=== PATIENT | female | born 1955 | race Caucasian/White ===

== ENCOUNTER → 2017-02-25 18:56 | Emergency (ER) | payer BC ==
[~2017-02-25 18:56] MED LIST: traMADol TAB* 50 MG PO ONE
--- NOTE | 2017-02-25 20:41 | RAD ---
INDICATION: Knee pain after a fall COMPARISON: None TECHNIQUE: 4 view radiograph of the left knee. FINDINGS: On the AP view, along the medial margin of the left tibial plateau is a faint lucent line that extends to an area of slight cortical disruption. This is not seen on other projections the bones are otherwise well corticated and properly aligned. There is no large joint effusion. IMPRESSION: Questionable lucency along the medial tibial plateau could represent a nondisplaced tibial plateau fracture in the correct clinical setting. If the patient's symptoms persist, follow-up imaging is recommended.
--- NOTE | 2017-02-25 23:32 | ED ---
Laceration/Wound HPI - HPI Summary HPI Summary: 61F presents with laceration to left knee. She has Parkinson and was walking into her house and fell onto her knee. She has an laceration over the lateral aspect of her patella. She has been able to ambulate with minimal pain. immunizations are up to date. got a nail in foot couple months ago and got a septic infection from it so is concerned about another infection. Denies any numbness or tingling. pain in mostly above the patella. no pain below the patella. - History of Current Complaint Stated Complaint: LT KNEE LAC Time Seen by Provider: 02/25/17 22:31 Pain Intensity: 2 - Additional Pertinent History Primary Care Physician: ROCIO - Allergy/Home Medications Allergies/Adverse Reactions: Allergies Allergy/AdvReac Type Severity Reaction Status Date / Time Erythromycin Allergy Hives Verified 02/25/17 19:40 Penicillins Allergy Hives Verified 02/25/17 19:40 Tetracycline Allergy Hives Verified 02/25/17 19:40 Pork Allergy AdvReac Headache Verified 02/25/17 19:40 PMH/Surg Hx/FS Hx/Imm Hx Endocrine/Hematology History: Reports: Hx Diabetes, Hx Thyroid Disease Cardiovascular History: Reports: Hx Hypertension Denies: Hx Pacemaker/ICD Respiratory History: Denies: Hx Asthma, Hx Chronic Obstructive Pulmonary Disease (COPD) GI History: Reports: Hx Gastrointestinal Bleed Denies: Hx Ulcer History: Reports: Other Problems/Disorders - kidney issues as child Sensory History: Reports: Hx Contacts or Glasses Denies: Hx Hearing Aid Opthamlomology History: Reports: Hx Contacts or Glasses Neurological History: Reports: Other Neuro Impairments/Disorders - parkinson;s Psychiatric History: Reports: Hx Panic Disorder - Surgical History Surgery Procedure, Year, and Place: thyroidectomy, hysterectomy;ENDOMETRIOSIS/ INFERTILITY Infectious Disease History: No Infectious Disease History: Denies: Hx Hepatitis, Hx Human Immunodeficiency Virus (HIV), Traveled Outside the [place] in Last 30 Days - Social History Alcohol Use: Rare Substance Use Type: Reports: None Smoking Status (MU): Former Smoker Review of Systems Negative: Fever Negative: Chest Pain Negative: Shortness Of Breath Positive: Other - left knee pain All Other Systems Reviewed And Are Negative: Yes Physical Exam Triage Information Reviewed: Yes Vital Signs On Initial Exam: Initial Vitals Temp Pulse Resp BP Pulse Ox 98.6 F 82 16 146/75 96 02/25/17 19:30 02/25/17 19:30 02/25/17 19:30 02/25/17 19:30 02/25/17 19:30 Vital Signs Reviewed: Yes Appearance: Positive: Well-Appearing Skin: Positive: Warm, Dry, Other - 4cm superficial half haile shape on left knee Head/Face: Positive: Normal Head/Face Inspection Eyes: Positive: Normal, Conjunctiva Clear Respiratory/Lung Sounds: Positive: Clear to Auscultation, Breath Sounds Present Cardiovascular: Positive: Normal, RRR Musculoskeletal: Positive: Strength/ROM Intact - left knee, Other - good pulses , tender over proximal lateral aspect of patella, capillary refill<2 secs - Angélica Coma Scale Coma Scale Total: 15 Procedures - Laceration/Wound Repair 1 Location: Other - left knee Description: Irregular Anesthesia: Local, 1.0%, Epi Length, Depth and Shape: 4cm superficial half haile shape Betadine Prep?: Yes Irrigated w/ Saline (ccs): 500 Closure: Single Layer Suture Type: Prolene - 4-0 Number of Sutures: 4 Diagnostics - Vital Signs Vital Signs Temp Pulse Resp BP Pulse Ox 02/25/17 19:30 98.6 F 82 16 146/75 96 - Laboratory Lab Statement: Any lab studies that have been ordered have been reviewed, and results considered in the medical decision making process. - Radiology knee Xray Interpretation: Positive (See Comments) - IMPRESSION: Questionable lucency along the medial tibial plateau could represent a nondisplaced tibial plateau fracture in the correct clinical setting. If the patient's symptoms persist, follow-up imaging is recommended. Radiology Interpretation Completed By: Radiologist Laceration Repair Course/Dx - Course Course Of Treatment: 61F presents with laceration to left knee. She has Parkinson and was walking into her house and fell onto her knee. She has an laceration over the lateral aspect of her patella. She has been able to ambulate with minimal pain. immunizations are up to date. got a nail in foot couple months ago and got a septic infection from it so is concerned about another infection. Denies any numbness or tingling. pain in mostly above the patella. no pain below the patella. nontender over tibia plateau. placed 4 sutures in laceration. xray read as possible tibia plateau fracture. patient does not pain in the area. discussed with patient and will treat as fracture until can be seen by ortho. discussed will give crutches but may need wheelchair to get around. patient understands and agrees with plan. - Differential Dx Differental Diagnoses: Abrasion, Avulsion, Fracture, Laceration - Clinical Impression Provider Diagnoses: Laceration of left knee, Tibial plateau fracture Discharge - Discharge Plan Condition: Good Disposition: HOME Patient Education Materials: Leg Fracture (ED), Care For Your Stitches (ED) Referrals: Filipe CERVANTES,Ever Rosa [Primary Care Provider] - Kory Johnson MD [Medical Doctor] - Additional Instructions: You potentially have a tibia plateau fracture Ice, elevate Stay off joint Take Tylenol for pain every 6 hours Keep area clean and dry for 24 hours Change bandage once a day Return to ED or primary in 10-14 days to have sutures removed Follow up with ortho, give call on Tuesday to set up appointment Return to ED if develop signs of infection such as fever, spreading redness, or pus or any new or worsening symptoms
[2017-02-26 00:19] VITALS: BP 138/84
== END | disposition home or self-care (01) ==
LOC: ED 18:56
DX: S81.012A Laceration without foreign body, left knee, initial encounter (principal); W19.XXXA Unspecified fall, initial encounter; Y93.9 Activity, unspecified; Y92.9 Unspecified place or not applicable; Y99.9 Unspecified external cause status; Z87.891 Personal history of nicotine dependence; E11.9 Type 2 diabetes mellitus without complications
CPT/HCPCS: 12002; 99282; A9270-GY